=== PATIENT | female | born 1980 | race Caucasian/White ===

== ENCOUNTER 2022-01-03 11:16 | Outpatient (CLI) | payer BC, SELFPAY ==
--- NOTE | ~2022-01-03 | XR_ITS ---
XR hand LT min 3V DATE: 01/03/2022 11:33 INDICATION: Left hand pain TECHNIQUE: 3 views COMPARISON: None FINDINGS: No fracture or dislocation, periosteal reaction or bone destruction, erosive change or bon drocalcinosis. Joint spaces appear well preserved. IMPRESSION: Negative Reviewed, dictated and finalized at location A. IMPRESSION: Negative
[2022-01-03 11:53] LABS: Hematocrit 42.4 % (37.0-47.0); Hemoglobin 14.5 g/dL (12.0-15.0); Mean Corpuscular HGB Conc 34.2 g/dl (32-36); Mean Corpuscular Hemoglobin 27.3 pg (26-34); Mean Corpuscular Volume 79.7 fl (80-100); Mean Platelet Volume 9.5 fl (7.4-10.4); Platelet Count Result 205 k/mm3 (150-375); Red Blood Count 5.32 M/mm3 (4.2-5.4); White Blood Count 9.7 K/mm3 (4.5-10.0)
[2022-01-03 12:09] LABS: Rheumatoid Factor < 8.6 IU/ML (<12)
[2022-01-03 12:10] LABS: Alanine Aminotransferase 27 U/L (6-35); Albumin Level 4.4 g/dL (3.5-5.1); Alkaline Phosphatase 102 U/L (38-126); Anion Gap 9 mmol/L (8-16); Aspartate Amino Transferase 22 U/L (14-36); Bilirubin,Total 0.7 mg/dL (0.2-1.3); Blood Urea Nitrogen 15 mg/dL (7-17); CRP 3.3 mg/dL (<1.0); Calcium 9.2 mg/dL (8.4-10.2); Carbon Dioxide 20 mmol/L (22-30); Chloride 109 mmol/L (98-107); Cholesterol 172 mg/dL (0-200); Estimated Glomerular Filt Rate > 60; Glucose 181 mg/dL (65-110); HDL Direct 35 mg/dL; Potassium 4.3 mmol/L (3.4-5.0); Sodium 138 mmol/L (137-145); Triglycerides 191 mg/dL (<150); Uric Acid 9.4 mg/dL (2.5-7.5)
[2022-01-03 12:19] LABS: LDL Cholesterol Direct 78 mg/dL
[2022-01-03 12:32] LABS: Microalbumin Urine Random 103.3 mg/L (0-16.7)
[2022-01-03 12:51] LABS: Erythrocyte Sedimentation Rate 49 mm/hr (0-20)
[2022-01-03 15:38] LABS: Creatinine Urine 565.3 mg/dL; MALB Creatinine Ratio 18.3 mg/g (0-30)
[2022-01-09 07:56] LABS: HLA B27 Positive (Negative)
== END 2022-01-03 11:17 | disposition home or self-care (01) ==
LOC: ANHIMG 11:21
PROVIDERS: PCP Family Medicine; Visit Provider Family Medicine
DX: M79.642 Pain in left hand (principal); M25.50 Pain in unspecified joint; E11.9 Type 2 diabetes mellitus without complications; I10 Essential (primary) hypertension; L40.9 Psoriasis, unspecified; Z15.89 Genetic susceptibility to other disease
CPT/HCPCS: 36415; 73130; 80053; 80061; 82043; 83036; 84443; 84550; 85027; 85652; 86140; 86430; 86812

== ENCOUNTER 2024-03-20 13:17 | Emergency (ER) | payer BC, SELFPAY ==
--- NOTE | ~2024-03-20 | XR_ITS ---
XR chest 2V Ordering provider: Dar Rivera MD History: 43 years Female with . CHEST,JAW PAIN . Comparison: September 11, 2017 FINDINGS: MEDIASTINUM: The cardiac silhouette is not enlarged. LUNGS: No infiltrates, effusions or pneumothorax. OTHER: No free air under the diaphragm. IMPRESSION: No acute cardiopulmonary pathology. Reviewed, dictated and finalized at location A.
--- NOTE | ~2024-03-20 | CT_ITS ---
CTA chest PE protocol Ordering provider: aDr Rivera MD History: 43 years Female with . cp, hx of saddle PE . Comparison: None. Technique: CT angiogram chest was performed following timed intravenous injection of contrast. Thin s lice axial images and reformatted coronal images were obtained. Three dimensional reformatted images of the chest were also obtained using a [employer] workstation. . Automated exposure control and iterati ve reconstruction technique were employed. The dose-length product was 975.72 mGy-cm. 100 mL Omnipaqu e 350 was given IV. Findings: PULMONARY ARTERIES: No pulmonary embolus. VISUALIZED THORACIC INLET: Normal. MEDIASTINUM: Aorta/coronary arteries: Mild atheromatous disease. Heart/other: The heart is not enlarged. Lymph nodes: No mediastinal or hilar adenopathy. LUNGS: No pulmonary nodules or masses. No infiltrates or effusions. No pneumothorax. VISUALIZED UPPER ABDOMEN: Cholelithiasis. Fat infiltration of the liver with hepatomegaly. Otherwise, the visualized upper abdomen is normal. MUSCULOSKELETAL: Soft tissues: The superficial soft tissues are normal. Bones: Age appropriate degenerative changes of the spine. Healed fracture in the right second rib. IMPRESSION: 1. No pulmonary embolism. 2. No acute cardiopulmonary pathology. 3. Cholelithiasis. 4. Fat infiltration of the liver with hepatomegaly. Reviewed, dictated and finalized at location A.
--- NOTE | 2024-03-20 13:20 | ECG_ITS ---
Test Date: 2024-03-20 13:24:22 Measurements Intervals [place]mer Rate: 101 P: 12 NV: 187 QRS: 1 QRSD: 89 T: 62 QT: 361 QTc: 468 Interpretive Statements SINUS TACHYCARDIA LEFT VENTRICULAR HYPERTROPHY WITH ST-T CHANGE BORDERLINE T WAVE ABNORMALITY- ANTEROLATERAL LEADS BASELINE ARTIFACT- AVR, V5-V6 ABNORMAL ECG No previous ECG available for comparison Electronically Signed On 03-20-2024 17:05:15 CDT by Vinod Phan D.O.
[2024-03-20 13:33] VITALS: BP 155/106; PULSE 101; RESP 18; TEMP 36.4; O2SAT 100
[2024-03-20 13:51] LABS: Basophils Absolute Auto 0.1 K/mm3 (0.0-0.1); Basophils Percent Auto 0.6 % (0.2-1.2); Eosinophils Absolute Auto 0.1 K/mm3 (0-0.3); Eosinophils Percent Auto 1.2 % (0-4.4); Hematocrit 49.5 % (37.0-47.0); Hemoglobin 16.5 g/dL (12.0-15.0); Immature Granulocyte Absolute 0.09 K/mm3 (0.00-0.031); Immature Granulocyte Percent A 1.1 % (0-0.5); Lymphocytes Absolute Auto 1.96 K/mm3 (0.9-3.2); Mean Corpuscular HGB Conc 33.3 g/dl (32-36); Mean Corpuscular Hemoglobin 27.1 pg (26-34); Mean Corpuscular Volume 81.3 fl (80-100); Mean Platelet Volume 9.5 fl (7.4-10.4); Monocytes Absolute Auto 0.4 K/mm3 (0.1-0.6); Monocytes Percent Auto 4.6 % (2.6-8.5); Neutrophils Absolute Auto 5.9 K/mm3 (1.3-6.7); Neutrophils Percent Auto 69.5 % (45.5-73.1); Platelet Count Result 192 k/mm3 (150-375); Red Blood Count 6.09 M/mm3 (4.2-5.4); Red Cell Distribution Width 13.7 % (11.5-14.5); White Blood Count 8.5 K/mm3 (4.5-10.0)
[2024-03-20 14:00] LABS: Alanine Aminotransferase 23 U/L (6-35); Albumin Level 4.9 g/dL (3.5-5.1); Alkaline Phosphatase 122 U/L (38-126); Anion Gap 12 mmol/L (4-12); Aspartate Amino Transferase 21 U/L (14-36); Bilirubin,Total 0.9 mg/dL (0.2-1.3); Blood Urea Nitrogen 16 mg/dL (7-17); Calcium 9.7 mg/dL (8.4-10.2); Carbon Dioxide 24 mmol/L (22-30); Chloride 99 mmol/L (98-107); Estimated CRCL calculation 118 ml/min; Estimated Glomerular Filt Rate > 60; Glucose 303 mg/dL (65-110); Lipase 45 U/L (23-300); Potassium 3.8 mmol/L (3.4-5.0); Sodium 135 mmol/L (137-145)
[2024-03-20 14:01] LABS: Prothrombin Time 13.2 Seconds (11.1-14.7)
[2024-03-20 14:11] LABS: Troponin I < 0.012 ng/mL (0.000-0.034)
[2024-03-20 14:15] LABS: Partial Thromboplastin Time 21.3 Seconds (22.3-36.8)
--- NOTE | 2024-03-20 16:35 | ECG_ITS ---
Test Date: 2024-03-20 16:49:04 Measurements Intervals Trilla Rate: 90 P: 13 IN: 186 QRS: 12 QRSD: 93 T: 53 QT: 377 QTc: 462 Interpretive Statements SINUS RHYTHM VOLTAGE CRITERIA FOR LVH NONSPECIFIC T-WAVE ABNORMALITY- HIGH LATERAL LEADS BORDERLINE ECG Compared to ECG 03/20/2024 13:24:22 HEART RATE HAS DECREASED Electronically Signed On 03-20-2024 17:16:56 CDT by Vinod Phan D.O.
[2024-03-20 16:38] VITALS: O2SAT 99
[2024-03-20 16:41] VITALS: PULSE 98
[2024-03-20 16:42] VITALS: BP 160/97; PULSE 98; RESP 15; O2SAT 100
[2024-03-20] MEDS: ASPIRIN 81 MG CHEWABLE TABLET 324 MG PO (16:45)
--- NOTE | 2024-03-20 17:16 | ED.CHESTPAIN ---
HPI - Chest Pain General Chief Complaint: Chest Pain Stated Complaint: jaw pain, nausea, GONZALEZ, slight chest pain Time Seen by Provider: 03/20/24 16:27 History of Present Illness HPI narrative: 43-year-old female presents to the emergency department for evaluation for left-sided jaw pain it has been going on for the last 3 days and intermittent chest pain that she has had for approximately the last 6 years. Patient states he does have history of dental caries and suspected that she was having dental pain or sinus issues. Patient states that when she went to the urgent care she had elevated blood pressure and was referred to the emergency department for further evaluation. Patient does take losartan for blood pressure states she has been taking it. Patient states she typically does have bilateral chest pain since she had a pulmonary embolism approximately 6 years ago. Patient denies any change in her chest pain and denies any current shortness of breath. Patient has no prior history of [place]. Related Data Home Medications Medication Instructions Recorded Confirmed apixaban 2.5 mg tablet (Eliquis) 2.5 mg PO BID 05/04/19 08/11/23 cholecalciferol (vitamin D3) 250 250 mcg PO DAILY 12/13/20 08/11/23 mcg (10,000 unit) capsule Allergies Allergy/AdvReac Type Severity Reaction Status Date / Time No Known Allergies Allergy Verified 07/16/23 11:19 Review of Systems Review of Systems: All systems reviewed & are unremarkable except as noted in HPI and below PMFSH Past Medical History Medical History Diabetes HTN (hypertension) Pulmonary embolism Family History Family History Mother Family history of liver disease Family history of cardiovascular disease Social History Social History Smoking status: Never smoker Second hand tobacco smoke exposure: No Alcohol intake: never Substance use: never Substance use type: does not use Living arrangements: with family Occupation/Education: occupation Spiritual care concerns: No Agree to blood products: Yes Exam Narrative: APPEARANCE: Well appearing, no pain, no distress, well-nourished. HEAD: normocephalic, atraumatic. EYES: PERRLA/EOMI, conjunctivae clear. NOSE: Normal no drainage EARS:TMS clear with good light reflex. THROAT: Pharynx clear, no exudate. NECK: Supple. No adenopathy, no masses. RESPIRATORY: Airway patent, respirations nonlabored. Clear to auscultation bilaterally, no rales, rhonchi, wheezing. CARDIOVASCULAR: Regular rate and rhythm without murmurs rubs or gallops. ABDOMINAL: Soft, nontender, nondistended, normal bowel sounds MUSCULOSKELETAL: Moves all extremities. Strength/ROM intact, No edema, No calf tenderness. NEURO: Alert. Cranial nerves II through XII intact. Good gait. Good coordination SKIN: Warm, dry. Normal Color PSYCHIATRIC: Normal affect/mood. Course Vital Signs Vital signs: Vital Signs Temperature 97.6 F 03/20/24 13:33 Pulse Rate 101 H 03/20/24 13:33 Respiratory Rate 18 03/20/24 13:33 Blood Pressure 155/106 H 03/20/24 13:33 Pulse Oximetry 100 03/20/24 13:33 Temperature 97.6 F 03/20/24 18:37 Pulse Rate 86 03/20/24 18:37 Respiratory Rate 20 03/20/24 18:37 Blood Pressure 161/93 H 03/20/24 18:37 Pulse Oximetry 99 03/20/24 18:37 Oxygen Delivery Room Air 03/20/24 16:38 MDM - Chest Pain MDM Narrative Medical decision making narrative: 43-year-old female presents to the emergency department for evaluation for left-sided jaw pain and bilateral chest pain. Patient also complains of left ear pain. Suspect dental pain or sinusitis as the underlying etiology of the patient's jaw pain. Patient has a negative serial troponin, CTA was ordered to evaluate for pulmonary embolism. CT was negative. Patient does have area
[2024-03-20 17:35] LABS: Troponin I < 0.012 ng/mL (0.000-0.034)
[2024-03-20] MEDS: AMOXICILLIN/CLAVULANATE K 875-125 MG TAB 1 TABLET PO (18:20)
[2024-03-20 18:37] VITALS: BP 161/93; PULSE 86; RESP 20; TEMP 36.4; O2SAT 99
[2024-03-20 23:40] LABS: Estimated CRCL calculation 104 ml/min; Estimated Glomerular Filt Rate > 60
[2024-03-22 14:27] LABS: BEDSIDEPREGUCG Negative (Negative)
== END 2024-03-20 18:38 | disposition home or self-care (01) ==
PROVIDERS: Emergency Medicine; Emergency Provider Emergency Medicine; PCP Nurse Practitioner Family
DX: R68.84 Jaw pain (principal); I10 Essential (primary) hypertension; E11.9 Type 2 diabetes mellitus without complications; Z86.711 Personal history of pulmonary embolism; Z79.84 Long term (current) use of oral hypoglycemic drugs; Z79.899 Other long term (current) drug therapy; Z79.01 Long term (current) use of anticoagulants; R00.0 Tachycardia, unspecified; I51.7 Cardiomegaly; R94.31 Abnormal electrocardiogram [ECG] [EKG]
CPT/HCPCS: 36415; 71046; 71275; 80053; 81025; 83690; 84484; 85025; 85610; 85730; 93005; 99284; A9270; Q9967